=== PATIENT | male | born 1945 | race Caucasian/White ===

== ENCOUNTER → 2016-08-21 | Outpatient (REF) | payer OTHER, MEDICARE ==
[~2016-08-21] MED LIST: ASPI650T2 OR; Albuterol Inhaler INH; COMBVENT INH; FERROUS GLUCONATE PO; LASI20TA OR; LIPI10TA OR; LOPR50TA PO; MULTIVIT PO; PAIN325T OR; PEPC40TA OR; PERC5TAB8 OR; PERC7.5T8 OR; PRIN5TAB OR; TRAM50TA2 OR
[2016-08-21 09:31] LABS: MEAN CORPUSCULAR HEMOGLOBIN 30.5 pg (27.0-33.0); MEAN CORPUSCULAR HGB CONC 32.8 g/dl (32.0-36.5); RED CELL DISTRIBUTION WIDTH 13.7 % (11.5-14.5); WHITE BLOOD COUNT 9.4 K/mm3 (4.0-10.0)
[2016-08-21 09:41] LABS: ALBUMIN 4.2 GM/DL (3.2-5.2); ALBUMIN/GLOBULIN RATIO 1.24 (1.00-1.93); BILIRUBIN,TOTAL 0.6 MG/DL (0.2-1.0); CREATININE FOR GFR 1.41 MG/DL (0.70-1.30); GLOMERULAR FILTRATION RATE 53.1 (>49); POTASSIUM SERUM 4.3 MEQ/L (3.5-5.1); TOTAL PROTEIN 7.6 GM/DL (6.4-8.2)
== END ==
LOC: M LAB REF 08:54
PROVIDERS: ATTEND Family Medicine
DX: Z00.00 Encounter for general adult medical examination without abnormal findings (principal); Z12.5 Encounter for screening for malignant neoplasm of prostate; E78.5 Hyperlipidemia, unspecified

== ENCOUNTER → 2017-04-06 | Outpatient (REF) | payer OTHER, MEDICARE ==
[~2017-04-06] MED LIST changes: +AMBI5TAB PO; +COQ-100C2 PO; +FURO40TA2 PO; +LIPI10TA PO; +MULT1TAB10 PO; +SPIR25TA2 PO; +VITA100067 PO
[2017-04-06 09:40] LABS: MEAN CORPUSCULAR HEMOGLOBIN 30.7 pg (27.0-33.0); MEAN CORPUSCULAR HGB CONC 33.8 g/dl (32.0-36.5); MEAN CORPUSCULAR VOLUME 91.1 fl (80.0-96.0); RED CELL DISTRIBUTION WIDTH 14.3 % (11.5-14.5); WHITE BLOOD COUNT 7.9 K/mm3 (4.0-10.0)
[2017-04-06 10:05] LABS: ALBUMIN 4.2 GM/DL (3.2-5.2); ALBUMIN/GLOBULIN RATIO 1.2 (1.00-1.93); BILIRUBIN,TOTAL 0.7 MG/DL (0.2-1.0); CALCIUM LEVEL 9.8 MG/DL (8.8-10.2); CREATININE FOR GFR 1.34 MG/DL (0.70-1.30); FREE T4 1.08 NG/DL (0.76-1.46); GLOMERULAR FILTRATION RATE 56.1 (>42); POTASSIUM SERUM 4.3 MEQ/L (3.5-5.1); TOTAL PROTEIN 7.7 GM/DL (6.4-8.2)
== END ==
LOC: M LAB REF 08:35
PROVIDERS: ATTEND Physician Assistant Medical
DX: D64.9 Anemia, unspecified (principal); R63.4 Abnormal weight loss; R19.4 Change in bowel habit

== ENCOUNTER → 2017-04-08 | Outpatient (CLI) | payer MEDICARE, OTHER ==
[~2017-04-08] MED LIST changes: +GASTROGRAFIN SOLUTION 30ML (Q9963) As Ordered ONE; +ISOVUE-370 76% 100ML VIAL (Q9967) As Ordered ONE
--- NOTE | 2017-04-08 14:35 | REP ---
Clinical: Weight loss with change in bowel habits and anemia. Technique: Axial contrast enhanced images from the lung bases to the pubic symphysis using oral and 100 ml Isovue 370 intravenous contrast material with precontrast images of the abdomen as well as coronal and sagittal re-formations. Findings: Lung bases demonstrate a 3 mm noncalcified nodule in the anterior margin of the left lower lobe adjacent to the fissure (image 18) which has been relatively stable compared to 2014. A possible small 9 mm soft tissue nodule at the left hilum is suggested and while this may represent small lymph node, and represents a new finding compared to chest CT dated 2014. Cardiomegaly is noted without pericardial effusion. Liver, spleen, pancreas, gallbladder, bilateral adrenal glands are normal. Kidneys demonstrate few bilateral cysts measuring up to 4 cm in the inferior pole of the right kidney and 5.7 cm off the inferior pole of the left kidney. The enteric system is without obstruction or acute inflammatory process. A normal terminal ileum and appendix are identified in the right lower quadrant. Sigmoid diverticula noted without acute diverticulitis. The bladder is unremarkable. The prostate gland is minimally prominent measuring 5.2 cm maximal transverse diameter. Small fat containing inguinal hernia noted. No ascites. No obvious adenopathy. Atherosclerotic changes to the vasculature noted without aneurysm. Musculoskeletal structures demonstrate degenerative changes without focal osseous abnormality. Impression: 1. 9 mm noncalcified density in the left hilum not identified on chest CT dated 2013 warrants 3-month follow-up evaluation. 2. Simple appearing bilateral cysts measuring up to 5 cm diameter. 3. Sigmoid diverticula without acute diverticulitis. 4. No further acute abdominopelvic pathology appreciated. Signed by Dale Estrada MD 04/08/2017 02:27 P
== END ==
LOC: M RAD 12:30
PROVIDERS: ATTEND Physician Assistant Medical
DX: R19.4 Change in bowel habit (principal); R63.4 Abnormal weight loss; D64.9 Anemia, unspecified
CPT/HCPCS: 74178; Q9963; Q9967

== ENCOUNTER 2017-04-14 07:14 | Outpatient (CLI) | payer MEDICARE, OTHER ==
[~2017-04-14] VITALS: Ht 172.7 cm; Wt 85.0 kg
[~2017-04-14 07:14] MED LIST changes: -GASTROGRAFIN SOLUTION 30ML (Q9963) As Ordered ONE; -ISOVUE-370 76% 100ML VIAL (Q9967) As Ordered ONE
[2017-04-14] MEDS ORDERED: NS 1,000 ML IV ONE (07:15)
[2017-04-14] MEDS ORDERED: PROPOFOL 200 MG/20 ML VIAL As Ordered ONE ×2 (08:21→08:22)
[2017-04-14] MEDS ORDERED: LIDOCAINE 2% INJ 100 MG/5 ML SDV (FOR ANES.) As Ordered ONE (08:22)
--- NOTE | 2017-04-14 08:40 | ROOR ---
Patient Name: Isaac Ibanez Procedure Date: 04/14/2017 8:20 AM Date of : 1945 Age: 72 Room: [facility] Gender: Male Note Status: Finalized Procedure: Upper GI endoscopy Indications: Weight loss Providers: Rickie CAMPOS MD Referring MD: HAILEY RAMIREZ MD Requesting Provider: Medicines: Monitored Anesthesia Care Complications: No immediate complications. Procedure: Pre-Anesthesia Assessment: - The heart rate, respiratory rate, oxygen saturations, blood pressure, adequacy of pulmonary ventilation, and response to care were monitored throughout the procedure. The Endoscope was introduced through the mouth, and advanced to the second part of duodenum. The upper GI endoscopy was accomplished without difficulty. The patient tolerated the procedure well. Findings: Mildly severe esophagitis was found at the gastroesophageal junction. Biopsies were taken with a cold forceps for histology. Minimal inflammation was found in the gastric antrum. Biopsies were taken with a cold forceps for Helicobacter pylori testing. Localized moderate inflammation was found in the first portion of the duodenum. Biopsies were taken with a cold forceps for histology. Impression: - Mild reflux esophagitis. Biopsied. - Mild Gastritis. Biopsied. - Moderate Duodenitis. Biopsied. Recommendation: - Use Prilosec (omeprazole) 40 mg PO daily for 3 months. - Telephone endoscopist for pathology results in 2 weeks. Rickie Campos MD Rickie CAMPOS MD 04/14/2017 8:39:53 AM This report has been signed electronically. Number of Addenda: 0 Note Initiated On: 04/14/2017 8:20 AM Estimated Blood Loss: Estimated blood loss: none.
--- NOTE | 2017-04-14 08:57 | ROOR ---
Patient Name: Isaac Ibanez Procedure Date: 04/14/2017 8:23 AM Date of : 1945 Age: 72 Room: [facility] Gender: Male Note Status: Finalized Procedure: Colonoscopy Indications: Weight loss Providers: Rickie CAMPOS MD Referring MD: HAILEY RAMIREZ MD Requesting Provider: Medicines: Monitored Anesthesia Care Complications: No immediate complications. Procedure: Pre-Anesthesia Assessment: - The heart rate, respiratory rate, oxygen saturations, blood pressure, adequacy of pulmonary ventilation, and response to care were monitored throughout the procedure. The Colonoscope was introduced through the anus and advanced to 5 cm into the ileum. The colonoscopy was performed without difficulty. The patient tolerated the procedure well. The quality of the bowel preparation was good. Findings: The perianal and digital rectal examinations were normal. The terminal ileum appeared normal. Three sessile polyps were found in the cecum and ileocecal valve. The polyps were 2 to 5 mm in size. These polyps were removed with a cold snare. Resection and retrieval were complete. Multiple small-mouthed diverticula were found in the sigmoid colon and ascending colon. Internal hemorrhoids were found during retroflexion. The hemorrhoids were medium-sized. The exam was otherwise without abnormality on direct and retroflexion views. (Exam: Complete, Prep: Good or Excellent.) Impression: - The examined portion of the ileum was normal. - Three 2 to 5 mm polyps in the cecum and at the ileocecal valve, removed with a cold snare. Resected and retrieved. - Mild diverticulosis in the sigmoid colon and in the ascending colon. - Moderate Internal hemorrhoids. - The examination was otherwise normal on direct and retroflexion views. - (Exam: Complete, Prep: Good or Excellent.) Recommendation: - Telephone endoscopist for pathology results in 2 weeks. - If the pathology report reveals adenomatous tissue, then repeat the colonoscopy for surveillance in 3 years. Rickie Campos MD Rickie CAMPOS MD 04/14/2017 8:56:38 AM This report has been signed electronically. Number of Addenda: 0 Note Initiated On: 04/14/2017 8:23 AM Estimated Blood Loss: Estimated blood loss: none.
[2017-04-14 09:15] VITALS: BP 101/67
== END 2017-04-14 09:25 | disposition home or self-care (01) ==
LOC: M OPP 07:14
PROVIDERS: ATTEND Internal Medicine Gastroenterology
DX: R63.4 Abnormal weight loss (principal); D12.0 Benign neoplasm of cecum; K57.30 Diverticulosis of large intestine without perforation or abscess without bleeding; K64.8 Other hemorrhoids; K21.0 Gastro-esophageal reflux disease with esophagitis; K29.70 Gastritis, unspecified, without bleeding; K29.80 Duodenitis without bleeding; R07.89 Other chest pain; I25.10 Atherosclerotic heart disease of native coronary artery without angina pectoris; Z95.1 Presence of aortocoronary bypass graft; I25.2 Old myocardial infarction; I11.0 Hypertensive heart disease with heart failure; E78.5 Hyperlipidemia, unspecified; I50.9 Heart failure, unspecified; R12 Heartburn; M19.90 Unspecified osteoarthritis, unspecified site; M54.9 Dorsalgia, unspecified; F41.9 Anxiety disorder, unspecified; F32.9 Major depressive disorder, single episode, unspecified; N28.1 Cyst of kidney, acquired; Z87.891 Personal history of nicotine dependence; Z88.0 Allergy status to penicillin; Z88.2 Allergy status to sulfonamides; Z91.018 Allergy to other foods; Z79.899 Other long term (current) drug therapy

== ENCOUNTER → 2017-05-25 | Outpatient (REF) | payer MEDICARE, OTHER | LOC: M SFHCLERA 16:11 | PROVIDERS: ATTEND Family Medicine | DX: N18.3 Chronic kidney disease, stage 3 (moderate) (principal); Z53.8 Procedure and treatment not carried out for other reasons ==

== ENCOUNTER → 2017-06-10 | Outpatient (REF) | payer MEDICARE, OTHER ==
[2017-06-10 09:46] LABS: BASO % 0.5 % (0.0-1.0); EOS # 0.4 10^3/uL (0.0-0.50); EOS % 4.9 % (0.0-3.0); IMMATURE GRANULOCYTE % 0.4 % (0-0); LYMPH # 1.1 10^3/uL (1.5-4.5); LYMPH % 13.6 % (24.0-44.0); MEAN CORPUSCULAR HEMOGLOBIN 30.8 pg (27.0-33.0); MEAN CORPUSCULAR HGB CONC 32.8 g/dl (32.0-36.5); MEAN CORPUSCULAR VOLUME 94.1 fl (80.0-96.0); MONO # 0.9 10^3/uL (0.0-0.8); MONO % 10.7 % (0.0-5.0); NEUTROPHILS # 5.7 10^3/uL (1.8-7.7); NEUTROPHILS % 69.9 % (36.0-66.0); PLATELET COUNT, AUTOMATED 322 10^3/uL (150-450); RED CELL DISTRIBUTION WIDTH 13.2 % (11.5-14.5); WHITE BLOOD COUNT 8.2 10^3/uL (4.0-10.0)
[2017-06-10 09:52] LABS: ALBUMIN 3.9 GM/DL (3.2-5.2); ALBUMIN/GLOBULIN RATIO 1.22 (1.00-1.93); BILIRUBIN,TOTAL 0.4 MG/DL (0.2-1.0); CALCIUM LEVEL 9.6 MG/DL (8.8-10.2); CREATININE FOR GFR 1.36 MG/DL (0.70-1.30); GLOMERULAR FILTRATION RATE 55.2 (>42); POTASSIUM SERUM 4.6 MEQ/L (3.5-5.1); TOTAL PROTEIN 7.1 GM/DL (6.4-8.2)
== END ==
LOC: M SFHCLERA 09:17
PROVIDERS: ATTEND Family Medicine
DX: N18.3 Chronic kidney disease, stage 3 (moderate) (principal)

== ENCOUNTER → 2017-06-17 | Outpatient (REF) | payer MEDICARE, OTHER ==
[2017-06-17 17:25] LABS: IONIZED CALCIUM 4.9 MG/DL (4.5-5.3)
[2017-06-17 18:42] LABS: CALCIUM LEVEL 9.8 MG/DL (8.8-10.2); CREATININE FOR GFR 1.37 MG/DL (0.70-1.30); GLOMERULAR FILTRATION RATE 54.7 (>42); MAGNESIUM LEVEL 2.2 MG/DL (1.8-2.4); PHOSPHORUS LEVEL 3.2 MG/DL (2.5-4.9); POTASSIUM SERUM 4.8 MEQ/L (3.5-5.1)
== END ==
LOC: M SFHCLERA 14:07
PROVIDERS: ATTEND Family Medicine
DX: N28.9 Disorder of kidney and ureter, unspecified (principal)

== ENCOUNTER → 2017-06-26 | Outpatient (CLI) | payer MEDICARE, OTHER ==
--- NOTE | 2017-06-26 13:02 | REP ---
CT study of the chest without IV contrast: History: Pulmonary nodule. Comparison chest CT study June 09, 2014. Comparison is made with abdominal CT images from April 08, 2017 showing a perivascular infrahilar nodule in the left lower lobe which was not felt to be visible in 2013. There is a CT pulmonary angiogram which is compared from June 02, 2013. CT findings: The patient is status post prior median sternotomy. There is no evidence of pleural or pericardial effusion. There are scattered mediastinal lymph nodes which are felt to be unchanged from the May 2014 prior study. Vascular calcification is noted. No adrenal lesion is seen on either side. No extrathoracic mass or adenopathy is observed. No bony destructive lesion is seen. No infiltrate is seen. There is a stable 9.8 mm nodule in the left upper lobe visible on page #39 of 112 in series 201 of today's study which is unchanged from 2013. There are two tiny adjacent stable nodules just medial to this on page #40. There is a stable tiny noncalcified 2-3 mm nodule in the left lower lobe on page 77 of 112 in this same series. These are all unchanged from the 2013 and 2012 prior studies. However, the recently identified left perivascular lower lobe nodule seen on the images from the abdominal CT dated April 08, 2017 is again seen. This measures 13-15 mm in size on today's images and may be slightly larger than on the April 08, 2017 study. It is felt to be new from the 2013 and 2012 exam. It would be much easier to evaluate and measure if iodinated contrast had been administered as it is immediately adjacent to the pulmonary arterial branch. Its margins are felt to be slightly irregular. No other new pulmonary nodule is appreciated. Impression: 13-15 mm nodule adjacent to left lower lobe pulmonary artery branches visible on today's study page 59 through 62 of 112 of today's study. This may be a little larger than on the recent study of April 08, 2017 and is new compared with 2013 and 2012 prior studies. Consider PET CT scanning for further evaluation. It is not considered amendable to percutaneous needle biopsy. Signed by Scooby Rey MD 06/26/2017 02:45 P
== END ==
LOC: M RAD 11:14
PROVIDERS: ATTEND Family Medicine
DX: R91.1 Solitary pulmonary nodule (principal)

== ENCOUNTER 2017-07-17 13:55 | Outpatient (RCR) | payer SELFPAY | END 2017-07-26 | LOC: M CR 13:55 | DX: Z95.1 Presence of aortocoronary bypass graft (principal); I50.9 Heart failure, unspecified ==

== ENCOUNTER → 2017-07-17 | Outpatient (CLI) | payer MEDICARE, OTHER ==
[~2017-07-17] MED LIST changes: -AMBI5TAB PO; -ASPI650T2 OR; -Albuterol Inhaler INH; -COMBVENT INH; -COQ-100C2 PO; -FERROUS GLUCONATE PO; -FURO40TA2 PO; +ISOVUE-370 76% 100ML VIAL (Q9967) As Ordered; -LASI20TA OR; -LIPI10TA OR; -LIPI10TA PO; -LOPR50TA PO; -MULT1TAB10 PO; -MULTIVIT PO; -PAIN325T OR; -PEPC40TA OR; -PERC5TAB8 OR; -PERC7.5T8 OR; -PRIN5TAB OR; -SPIR25TA2 PO; -TRAM50TA2 OR; -VITA100067 PO
== END ==
LOC: M RAD 14:30
DX: R91.8 Other nonspecific abnormal finding of lung field (principal)
CPT/HCPCS: Q9967

== ENCOUNTER → 2017-07-22 | Outpatient (CLI) | payer MEDICARE, OTHER | LOC: M PLARAD 09:37 | DX: R91.1 Solitary pulmonary nodule (principal) | CPT/HCPCS: 78815 ==

== ENCOUNTER 2017-08-13 08:23 | Day surgery (SDC) | payer MEDICARE, OTHER ==
[2017-08-13] MEDS: NS 1,000 ML IV (08:30)
[2017-08-13] MEDS ORDERED: LIDOCAINE 2% INJ 100 MG/5 ML SYRINGE As Ordered (09:59)
[2017-08-13] MEDS ORDERED: PROPOFOL 500 MG/50 ML VIAL As Ordered (09:59)
[2017-08-13] MEDS ORDERED: SIMETHICONE 40MG/0.6ML DROPS 30ML As Ordered (14:55)
== END 2017-08-13 10:52 | disposition home or self-care (01) ==
LOC: M OPP 08:23
DX: R93.3 Abnormal findings on diagnostic imaging of other parts of digestive tract (principal); K64.8 Other hemorrhoids; K57.30 Diverticulosis of large intestine without perforation or abscess without bleeding; I11.0 Hypertensive heart disease with heart failure; E78.5 Hyperlipidemia, unspecified; K21.9 Gastro-esophageal reflux disease without esophagitis; F32.9 Major depressive disorder, single episode, unspecified; F41.9 Anxiety disorder, unspecified; K22.70 Barrett's esophagus without dysplasia; R07.9 Chest pain, unspecified; I50.9 Heart failure, unspecified; I05.8 Other rheumatic mitral valve diseases; R91.8 Other nonspecific abnormal finding of lung field; M19.90 Unspecified osteoarthritis, unspecified site; N18.9 Chronic kidney disease, unspecified; N28.1 Cyst of kidney, acquired; Z79.899 Other long term (current) drug therapy; Z88.0 Allergy status to penicillin; Z88.2 Allergy status to sulfonamides; Z95.1 Presence of aortocoronary bypass graft; Z87.891 Personal history of nicotine dependence; Z98.890 Other specified postprocedural states
CPT/HCPCS: 45378

== ENCOUNTER 2017-09-03 09:40 | Day surgery (SDC) | payer MEDICARE, OTHER ==
[2017-09-03] MEDS: LR 1,000 ML IV (10:13)
[2017-09-03] MEDS: THROMBIN SOLN 20,000 UNITS KIT As Ordered (10:16)
[2017-09-03] MEDS: LIDOCAINE VISCOUS 2% SOLN 15ML UDC As Ordered (10:17)
[2017-09-03] MEDS ORDERED: dexameTHASONE 4 MG/ML 1ML VIAL (J1100) As Ordered (11:41)
[2017-09-03] MEDS ORDERED: LIDOCAINE 2% INJ 100 MG/5 ML SDV (FOR ANES.) As Ordered (11:41)
[2017-09-03] MEDS ORDERED: fentaNYL 250 MCG/5 ML INJECTION (J3010) As Ordered (11:41)
[2017-09-03] MEDS ORDERED: PROPOFOL 200 MG/20 ML VIAL As Ordered (11:41)
[2017-09-03] MEDS ORDERED: ROCURONIUM BROMIDE 50 MG/5 ML VIAL As Ordered (11:41)
[2017-09-03] MEDS ORDERED: ePHEDrine INJ 50 MG/ML VIAL As Ordered (11:41)
[2017-09-03] MEDS ORDERED: PHENYLephrine HCL 500 MCG/5 ML (100MCG/ML) SYRINGE (J2370) As Ordered (11:41)
[2017-09-03] MEDS ORDERED: MIDAZOLAM INJ 2 MG/2 ML VIAL (J2250) As Ordered (11:41)
[2017-09-03] MEDS ORDERED: NEOSTIGMINE 10 MG/10 ML VIAL (J2710) As Ordered (11:46)
[2017-09-03] MEDS ORDERED: GLYCOPYRROLATE INJ 0.2 MG/ML 2 ML VIAL As Ordered ×2 (11:46)
[2017-09-03] MEDS: CETACAINE SPRAY 5GM As Ordered (12:00)
[2017-09-03] MEDS: LIDOCAINE 4% TOPICAL SOLN 50 ML BTL As Ordered (12:01)
[2017-09-03] MEDS: EPINEPHrine 1MG/10ML SYRINGE 1.5IN As Ordered (12:58)
[2017-09-03] MEDS: LIDOCAINE 1% SDV INJ 30 ML VIAL As Ordered (12:58)
[2017-09-03] MEDS: THROMBIN SOLN 5,000 UNITS VIAL As Ordered (12:59)
[2017-09-03] MEDS ORDERED: LR 1,000 ML IV (13:30)
[2017-09-03] MEDS ORDERED: fentaNYL 100 MCG/2 ML INJECTION (J3010) IV (13:30)
[2017-09-03] MEDS ORDERED: ONDANSETRON 4MG/2ML VIAL (J2405) IV (13:30)
[2017-09-03] MEDS ORDERED: NORCO, ANEXSIA 5/325MG TABLET (HYDROcodone/ACETAMINOPHEN) PO (13:30)
== END 2017-09-03 14:25 | disposition home or self-care (01) ==
LOC: M SDC 09:40
DX: R91.8 Other nonspecific abnormal finding of lung field (principal); R91.1 Solitary pulmonary nodule; I25.10 Atherosclerotic heart disease of native coronary artery without angina pectoris; K22.70 Barrett's esophagus without dysplasia; I34.8 Other nonrheumatic mitral valve disorders; R07.9 Chest pain, unspecified; I25.2 Old myocardial infarction; I13.10 Hypertensive heart and chronic kidney disease without heart failure, with stage 1 through stage 4 chronic kidney disease, or unspecified chronic kidney disease; E78.5 Hyperlipidemia, unspecified; D64.9 Anemia, unspecified; M12.9 Arthropathy, unspecified; M54.2 Cervicalgia; F32.9 Major depressive disorder, single episode, unspecified; N18.3 Chronic kidney disease, stage 3 (moderate); Z88.0 Allergy status to penicillin; Z88.2 Allergy status to sulfonamides; Z88.8 Allergy status to other drugs, medicaments and biological substances; Z91.018 Allergy to other foods; Z79.899 Other long term (current) drug therapy; Z79.82 Long term (current) use of aspirin; Z87.891 Personal history of nicotine dependence; Z95.5 Presence of coronary angioplasty implant and graft
CPT/HCPCS: 31623

== ENCOUNTER → 2017-09-09 | Outpatient (REF) | payer MEDICARE, OTHER ==
[2017-09-09 11:52] LABS: CREATININE FOR GFR 1.38 MG/DL (0.70-1.30); GLOMERULAR FILTRATION RATE 54.2 (>42)
[2017-09-09 11:52] LABS: BLOOD UREA NITROGEN 22 MG/DL (7-18)
== END ==
LOC: M LAB REF 11:18
DX: R91.8 Other nonspecific abnormal finding of lung field (principal)
CPT/HCPCS: 82565

== ENCOUNTER → 2017-09-18 | Outpatient (CLI) | payer MEDICARE, OTHER | LOC: M RAD 10:18 | DX: R91.8 Other nonspecific abnormal finding of lung field (principal) | CPT/HCPCS: Q9967 ==

== ENCOUNTER → 2017-11-09 | Outpatient (CLI) | payer MEDICARE, OTHER ==
[2017-11-09 18:12] LABS: ANION GAP 7 MEQ/L (8-16); BLOOD UREA NITROGEN 32 MG/DL (7-18); CALCIUM LEVEL 9.6 MG/DL (8.8-10.2); CARBON DIOXIDE LEVEL 28 MEQ/L (21-32); CHLORIDE LEVEL 107 MEQ/L (98-107); CREATININE FOR GFR 1.78 MG/DL (0.70-1.30); GLOMERULAR FILTRATION RATE 40.4 (>42); GLUCOSE, FASTING 101 MG/DL (70-100); POTASSIUM SERUM 4.3 MEQ/L (3.5-5.1); SODIUM LEVEL 142 MEQ/L (136-145)
== END ==
LOC: M SMT 13:18
DX: I50.9 Heart failure, unspecified (principal); I42.9 Cardiomyopathy, unspecified
CPT/HCPCS: 80048

== ENCOUNTER 2017-12-11 06:42 | Emergency (ER) | payer MEDICARE, OTHER ==
[2017-12-11 07:13] LABS: BASO % 0.5 % (0.0-1.0); EOS # 0.4 10^3/uL (0.0-0.50); EOS % 4.3 % (0.0-3.0); HEMOGLOBIN 12.9 g/dl (13.5-17.5); IMMATURE GRANULOCYTE % 0.2 % (0-3.0); LYMPH # 1.1 10^3/uL (1.5-4.5); LYMPH % 13.7 % (24.0-44.0); MEAN CORPUSCULAR HEMOGLOBIN 28.8 pg (27.0-33.0); MEAN CORPUSCULAR HGB CONC 32.3 g/dl (32.0-36.5); MEAN CORPUSCULAR VOLUME 89.3 fl (80.0-96.0); MONO % 11.6 % (0.0-5.0); NEUTROPHILS # 5.7 10^3/uL (1.8-7.7); NEUTROPHILS % 69.7 % (36.0-66.0); PLATELET COUNT, AUTOMATED 256 10^3/uL (150-450); RED BLOOD COUNT 4.48 10^6/uL (4.30-6.10); RED CELL DISTRIBUTION WIDTH 14.4 % (11.5-14.5); WHITE BLOOD COUNT 8.2 10^3/uL (4.0-10.0)
[2017-12-11 07:28] LABS: INR 1.07; PARTIAL THROMBOPLASTIN TIME 32.7 SECONDS (26.8-37.9)
[2017-12-11 07:46] LABS: ALBUMIN 3.7 GM/DL (3.2-5.2); ALKALINE PHOSPHATASE 110 U/L (45-117); ALT/SGPT 40 U/L (12-78); ANION GAP 7 MEQ/L (8-16); AST/SGOT 26 U/L (7-37); BILIRUBIN,DIRECT 0.1 MG/DL (0.0-0.2); BILIRUBIN,TOTAL 0.5 MG/DL (0.2-1.0); BLOOD UREA NITROGEN 36 MG/DL (7-18); CALCIUM LEVEL 8.9 MG/DL (8.8-10.2); CARBON DIOXIDE LEVEL 25 MEQ/L (21-32); CHLORIDE LEVEL 109 MEQ/L (98-107); CK-MB VALUE MASS 2.5 NG/ML (<3.6); CPK CREATINE PHOSPHOKINASE 74 U/L (39-308); CREATININE FOR GFR 1.56 MG/DL (0.70-1.30); GLOMERULAR FILTRATION RATE 47.1 (>42); GLUCOSE, FASTING 121 MG/DL (70-100); LIPASE 142 U/L (73-393); MB/CK RELATIVE INDEX 3.37 (< OR =4); POTASSIUM SERUM 3.8 MEQ/L (3.5-5.1); SODIUM LEVEL 141 MEQ/L (136-145); TOTAL PROTEIN 7.4 GM/DL (6.4-8.2); TROPONIN I 0.04 NG/ML (< 0.10)
[2017-12-11] MEDS ORDERED: NITROGLYCERIN 0.4 MG SUBL TABLET SL (08:00)
[2017-12-11 13:30] LABS: CK-MB VALUE MASS 2.6 NG/ML (<3.6); CPK CREATINE PHOSPHOKINASE 69 U/L (39-308); MB/CK RELATIVE INDEX 3.76 (< OR =4); TROPONIN I 0.04 NG/ML (< 0.10)
== END 2017-12-11 13:50 | disposition home or self-care (01) ==
LOC: M ED 06:42
DX: R07.9 Chest pain, unspecified (principal); I44.0 Atrioventricular block, first degree; I45.9 Conduction disorder, unspecified; I51.7 Cardiomegaly; I51.9 Heart disease, unspecified; Z95.1 Presence of aortocoronary bypass graft; N18.4 Chronic kidney disease, stage 4 (severe); Z87.891 Personal history of nicotine dependence; Z79.82 Long term (current) use of aspirin; Z79.899 Other long term (current) drug therapy; Z88.0 Allergy status to penicillin; Z88.2 Allergy status to sulfonamides; Z91.018 Allergy to other foods
CPT/HCPCS: 71046

== ENCOUNTER → 2018-05-20 | Outpatient (REF) | payer MEDICARE, OTHER | LOC: M SFHCLERA 14:22 | DX: I25.810 Atherosclerosis of coronary artery bypass graft(s) without angina pectoris (principal) ==

== ENCOUNTER → 2018-06-03 | Outpatient (REF) | payer MEDICARE, OTHER ==
[2018-06-03 18:04] LABS: BASO % 0.5 % (0.0-1.0); EOS # 0.4 10^3/uL (0.0-0.50); EOS % 4.4 % (0.0-3.0); HEMATOCRIT 39.7 % (42.0-52.0); HEMOGLOBIN 12.9 g/dl (13.5-17.5); IMMATURE GRANULOCYTE % 0.1 % (0-3.0); LYMPH # 1.4 10^3/uL (1.5-4.5); LYMPH % 17.4 % (24.0-44.0); MEAN CORPUSCULAR HEMOGLOBIN 30.1 pg (27.0-33.0); MEAN CORPUSCULAR HGB CONC 32.5 g/dl (32.0-36.5); MEAN CORPUSCULAR VOLUME 92.5 fl (80.0-96.0); MONO # 0.9 10^3/uL (0.0-0.8); MONO % 10.8 % (0.0-5.0); NEUTROPHILS # 5.3 10^3/uL (1.8-7.7); NEUTROPHILS % 66.8 % (36.0-66.0); PLATELET COUNT, AUTOMATED 325 10^3/uL (150-450); RED BLOOD COUNT 4.29 10^6/uL (4.30-6.10)
[2018-06-03 18:13] LABS: ANION GAP 7 MEQ/L (8-16); BLOOD UREA NITROGEN 37 MG/DL (7-18); CARBON DIOXIDE LEVEL 29 MEQ/L (21-32); CHLORIDE LEVEL 100 MEQ/L (98-107); CHOLESTEROL LEVEL 164 MG/DL (<200); CHOLESTEROL RISK RATIO 3.416 (<5); CREATININE FOR GFR 1.53 MG/DL (0.70-1.30); GLUCOSE, FASTING 110 MG/DL (70-100); HDL CHOLESTEROL 48 MG/DL (>40); LDL CHOLESTEROL 85 MG/DL (<100); NON-HDL-C 116 MG/DL; POTASSIUM SERUM 4.7 MEQ/L (3.5-5.1); SODIUM LEVEL 136 MEQ/L (136-145); TRIGLYCERIDES LEVEL 153 MG/DL (<150)
[2018-06-03 18:52] LABS: MALB URINE SIEMENS 18.3 MG/L
[2018-06-03 18:54] LABS: MAU/CREAT RATIO 17.1 MCG/MG (0.0-30.0)
== END ==
LOC: M SFHCLERA 08:12
DX: I25.810 Atherosclerosis of coronary artery bypass graft(s) without angina pectoris (principal)
CPT/HCPCS: 80061

== ENCOUNTER → 2018-08-12 | Outpatient (CLI) | payer MEDICARE, OTHER ==
[~2018-08-12] MED LIST changes: +AMBI5TAB PO; +ASPI325T25 PO; +ASPI650T2 OR; +Albuterol Inhaler INH; +COMBVENT INH; +COQ-100C2 PO; +FERROUS GLUCONATE PO; +FURO40TA2 PO; -ISOVUE-370 76% 100ML VIAL (Q9967) As Ordered; +LASI20TA OR; +LIPI10TA OR; +LIPI10TA PO; +LOPR50TA PO; +MULT1TAB10 PO; +MULTIVIT PO; +OMEP20CA3 PO; +PAIN325T OR; +PEPC40TA OR; +PERC5TAB8 OR; +PERC7.5T8 OR; +PRIN5TAB OR; +SPIR-10 PO; +TRAM50TA2 OR; +TRAZ-163 PO; +VITA100067 PO
[2018-08-12 16:18] LABS: BASO % 0.3 % (0.0-1.0); EOS # 0.2 10^3/uL (0.0-0.50); EOS % 2.2 % (0.0-3.0); HEMATOCRIT 41.6 % (42.0-52.0); HEMOGLOBIN 13.8 g/dl (13.5-17.5); LYMPH # 1.2 10^3/uL (1.5-4.5); LYMPH % 16.1 % (24.0-44.0); MEAN CORPUSCULAR HEMOGLOBIN 30.5 pg (27.0-33.0); MEAN CORPUSCULAR HGB CONC 33.2 g/dl (32.0-36.5); MEAN CORPUSCULAR VOLUME 91.8 fl (80.0-96.0); MONO # 0.8 10^3/uL (0.0-0.8); NEUTROPHILS # 5.1 10^3/uL (1.8-7.7); NEUTROPHILS % 70.1 % (36.0-66.0); PLATELET COUNT, AUTOMATED 281 10^3/uL (150-450); RED BLOOD COUNT 4.53 10^6/uL (4.30-6.10); WHITE BLOOD COUNT 7.3 10^3/uL (4.0-10.0)
[2018-08-12 16:49] LABS: CALCIUM LEVEL 10.1 MG/DL (8.8-10.2); CREATININE FOR GFR 1.68 MG/DL (0.70-1.30); GLOMERULAR FILTRATION RATE 43.1 (>42); POTASSIUM SERUM 5.3 MEQ/L (3.5-5.1)
== END ==
LOC: M LRY 14:26
PROVIDERS: ATTEND Internal Medicine Cardiovascular Disease
DX: I50.9 Heart failure, unspecified (principal)

== ENCOUNTER → 2019-02-12 | Outpatient (CLI) | payer MEDICARE, OTHER ==
[~2019-02-12] MED LIST changes: +ASPI-255 PO; -ASPI325T25 PO; -OMEP20CA3 PO; +OMEP20CA4 PO
--- NOTE | 2019-02-13 08:16 | REP ---
LEFT ELBOW: Four views left elbow performed. No acute fracture or dislocation is seen. There is minor diffuse joint space narrowing and spurring. There is a small joint effusion. IMPRESSION: Mild degenerative changes. Small joint effusion. No definite fracture. Electronically Signed by Terrell Fuchs MD 02/13/2019 10:35 P
--- NOTE | 2019-02-13 08:18 | REP ---
LEFT FOREARM TWO VIEWS: Two views of the left forearm are performed. Mild diffuse degenerative changes are seen at the left elbow joint with mild diffuse joint space narrowing and spurring. There is mild radiocarpal joint space narrowing at the wrist. There are arthritic changes incidentally noted at the base of the thumb. IMPRESSION: Mild degenerative changes as discussed above. No acute fracture or dislocation. Electronically Signed by Terrell Fuchs MD 02/13/2019 10:36 P
== END ==
LOC: M WUC 12:32
PROVIDERS: ATTEND Physician Assistant
DX: M25.422 Effusion, left elbow (principal); M19.022 Primary osteoarthritis, left elbow

== ENCOUNTER → 2020-11-21 | Outpatient (REF) | payer MEDICARE, OTHER ==
[~2020-11-21] MED LIST changes: +OMEP1CAP73 PO; -OMEP20CA4 PO; -TRAZ-163 PO; +TRAZ-257 PO
[2020-11-21 14:36] LABS: BILIRUBIN,TOTAL 0.4 MG/DL (0.2-1.0); CALCIUM LEVEL 9.9 MG/DL (8.8-10.2); CHOLESTEROL RISK RATIO 3.479 (<5); CREATININE FOR GFR 1.36 MG/DL (0.70-1.30); GLOMERULAR FILTRATION RATE 54.7 (>42); POTASSIUM SERUM 4.7 MEQ/L (3.5-5.1); TOTAL PROTEIN 7.4 GM/DL (6.4-8.2)
== END ==
LOC: M PLALAB 13:18
PROVIDERS: ATTEND Nurse Practitioner Family
DX: I50.22 Chronic systolic (congestive) heart failure (principal); Z95.5 Presence of coronary angioplasty implant and graft; I25.10 Atherosclerotic heart disease of native coronary artery without angina pectoris

== ENCOUNTER → 2020-11-21 | Outpatient (REF) | payer MEDICARE, OTHER ==
[2020-11-21 13:21] LABS: BASO # 0.1 10^3/uL (0.0-0.2); BASO % 0.8 % (0.0-1.0); EOS # 0.5 10^3/uL (0.0-0.5); HEMATOCRIT 39.8 % (42.0-52.0); HEMOGLOBIN 12.3 g/dl (13.5-17.5); LYMPH # 1.2 10^3/uL (1.5-5.0); LYMPH % 15.4 % (24.0-44.0); MEAN CORPUSCULAR HEMOGLOBIN 28.9 pg (27.0-33.0); MEAN CORPUSCULAR HGB CONC 30.9 g/dl (32.0-36.5); MEAN CORPUSCULAR VOLUME 93.6 fl (80.0-96.0); MONO # 0.9 10^3/uL (0.0-0.8); MONO % 11.5 % (2.0-8.0); NEUTROPHILS # 5.1 10^3/uL (1.5-8.5); NEUTROPHILS % 65.9 % (36.0-66.0); PLATELET COUNT, AUTOMATED 299 10^3/uL (150-450); RED BLOOD COUNT 4.25 10^6/uL (4.30-6.10); WHITE BLOOD COUNT 7.7 10^3/uL (4.0-10.0)
[2020-11-21 13:50] LABS: HEMOGLOBIN A1c 5.6 %
== END ==
LOC: M SFHCLERA 09:33
PROVIDERS: ATTEND Family Medicine
DX: D64.9 Anemia, unspecified (principal); Z13.1 Encounter for screening for diabetes mellitus; Z79.899 Other long term (current) drug therapy

== ENCOUNTER → 2020-12-18 | Outpatient (CLI) | payer MEDICARE, OTHER ==
--- NOTE | 2020-12-18 16:31 | REPVR ---
PROCEDURE INFORMATION: Exam: CT Chest Without Contrast; Diagnostic Exam date and time: 12/18/2020 3:34 PM Age: 75 years old Clinical indication: Other: Nodule; Additional info: Pulmonary nodule TECHNIQUE: Imaging protocol: Diagnostic computed tomography of the chest without contrast. 3D rendering (Not supervised by radiologist): MIP and/or 3D reconstructed images were created by the technologist. Radiation optimization: All CT scans at this facility use at least one of these dose optimization techniques: automated exposure control; mA and/or kV adjustment per patient size (includes targeted exams where dose is matched to clinical indication); or iterative reconstruction. COMPARISON: CT Chest with contrast 09/18/2017 10:41 AM FINDINGS: Tubes, catheters and devices: A pacemaker device is present, and its leads are in appropriate position. Lungs: There is redemonstration of a left upper lobe peripheral nodule measuring 9 mm on axial image 36 similar to the lesion described on image 39 of the previous study. An adjacent slightly anterior 5 mm nodule is stable. There is another left upper lobe nodule somewhat more laterally measuring 6 mm on image 40 which measured about 5 mm on previous image 44. There are new nodules in the posterior right upper lobe peripherally measuring 4 mm on image 23 and 6 mm on image 26 and 5 mm on image 30 which are not identified on the prior study. There is a new 3 mm peripheral right middle lobe nodule on image 56. Pleural spaces: Unremarkable. No pneumothorax. No pleural effusion. Heart: Sternotomy wires and mediastinal surgical clips are present, consistent with previous coronary arterial bypass grafting. Mediastinal space: There is a multilobulated mass involving the lower left hilum measuring 31 x 40 mm on axial image 56 with craniocaudal diameter of 31 mm. There is a 2nd slightly more anterior left lower lobe nodule measuring 15 x 27 by 19 mm. Aorta: Unremarkable. No aortic aneurysm. Lymph nodes: Unremarkable. No enlarged lymph nodes. Liver: Upper abdomen: The visualized portions of the liver, pancreas, adrenal glands, and spleen show no significant abnormalities. Gallbladder and bile ducts: Multiple calcified gallstones are present. There is no evidence of cholecystitis or biliary dilatation. Kidneys and ureters: There are several bilateral renal cysts with the largest at the lower pole of the right kidney measuring 3.2 cm with a similar size cyst of the anteromedial lip of the left kidney. Bones/joints: Unremarkable. No acute fracture. Soft tissues: Unremarkable. IMPRESSION: 1. There is a multilobulated mass involving the lower left hilum measuring 31 x 40 mm on axial image 56 with craniocaudal diameter of 31 mm. There is a 2nd slightly more anterior left lower lobe nodule measuring 15 x 27 by 19 mm. 2. There is redemonstration of a left upper lobe peripheral nodule measuring 9 mm on axial image 36 similar to the lesion described on image 39 of the previous study. An adjacent slightly anterior 5 mm nodule is stable. 3. There is another left upper lobe nodule somewhat more laterally measuring 6 mm on image 40 which measured about 5 mm on previous image 44. 4. There are new nodules in the posterior right upper lobe peripherally measuring 4 mm on image 23 and 6 mm on image 26 and 5 mm on image 30 which are not identified on the prior study. There is a new 3 mm peripheral right middle lobe nodule on image 56. 5. Multiple calcified gallstones are present. There is no evidence of cholecystitis or biliary dilatation. 6. There are several bilateral renal cysts with the largest at the lower pole of the right kidney measuring 3.2 cm with a similar size cyst of the anteromedial lip of the left kidney. RECOMMENDATION: As per revised Fleischner Society guidelines for follow-up and management of pulmonary nodules: Recommend initial follow-up chest CT at 3 months with followup consideration at 18 to 24 months. Consider contrast enhanced chest CT, PET scan and/or biopsy as clinically warranted. COMMENTS: Consistent with the [employer]'s Incidental Findings Committee white paper (J Am Gabbi Radiol 2018): Any incidental renal lesion less than 1 cm or classified as too small to characterize, or any incidental cystic renal lesion characterized as simple-appearing, is likely benign. No follow-up imaging is recommended for these lesions per consensus recommendations based on imaging criteria. Electronically signed by: Jin Gill On 12/18/2020 16:30:56 PM
== END ==
LOC: M RAD 15:20
PROVIDERS: ATTEND Family Medicine
DX: R91.8 Other nonspecific abnormal finding of lung field (principal); Z95.0 Presence of cardiac pacemaker; K80.20 Calculus of gallbladder without cholecystitis without obstruction; N28.1 Cyst of kidney, acquired

== ENCOUNTER → 2021-01-25 | Outpatient (CLI) | payer MEDICARE, OTHER ==
[~2021-01-25] MED LIST changes: +ASPI-527 PO; +LISI-898 PO; +METO1TAB32 PO; +VITMTA PO
== END ==
LOC: M LABSMTC 13:04
PROVIDERS: ATTEND Anesthesiology
DX: Z01.812 Encounter for preprocedural laboratory examination (principal); Z20.822 Contact with and (suspected) exposure to COVID-19

== ENCOUNTER 2021-01-29 08:12 | Day surgery (SDC) | payer MEDICARE, OTHER ==
[~2021-01-29] VITALS: Ht 175.3 cm; Wt 98.2 kg
[~2021-01-29 08:12] MED LIST changes: +ALBUTEROL SULFATE 2.5 MG/0.5 ML INH NEB SOLN INH ONE; -ASPI-527 PO; +LIDOCAINE 4% INJ 5ML AMP INH ONE; -LISI-898 PO; +LISI5TAB11 PO; +LR 1,000 ML IV ONE
[2021-01-29] MEDS ORDERED: MIDAZOLAM INJ 2MG/2ML VIAL (J2250 PER 1MG) As Ordered ONE (08:25)
[2021-01-29] MEDS ORDERED: fentaNYL 100 MCG/2 ML INJECTION As Ordered ONE (08:25)
[2021-01-29] MEDS ORDERED: ONDANSETRON 4MG/2ML VIAL As Ordered ONE (08:26)
[2021-01-29] MEDS ORDERED: PHENYLephrine 500MCG 5ML (100MCG/ML) SYRINGE As Ordered ONE (08:26)
[2021-01-29] MEDS ORDERED: ePHEDrine SULFATE 25 MG/5 ML(5MG/ML) SYRINGE As Ordered ONE (08:26)
[2021-01-29] MEDS ORDERED: SUGAMMADEX SODIUM 500 MG/5 ML VIAL (BRIDION) As Ordered ONE (08:26)
[2021-01-29] MEDS ORDERED: dexameTHASONE 4 MG/ML 1ML VIAL (J1100 PER 1MG) As Ordered ONE (08:26)
[2021-01-29] MEDS ORDERED: ACETAMINOPHEN 1000MG 100ML IV BTL (OFIRMEV) (J0131 PER 10MG) As Ordered ONE ×2 (08:26→12:21)
[2021-01-29] MEDS ORDERED: propofoL 200 MG/20 ML VIAL As Ordered ONE (08:27)
[2021-01-29] MEDS ORDERED: ROCURONIUM BROMIDE 50 MG/5 ML VIAL As Ordered ONE (08:27)
[2021-01-29] MEDS ORDERED: LIDOCAINE 2% 100MG/5ML SDV (FOR ANES.) As Ordered ONE (08:27)
[2021-01-29] MEDS ORDERED: ASPI-527 PO (08:54)
[2021-01-29] MEDS ORDERED: LIDOCAINE 1% SDV 30ML VIAL As Ordered ONE (11:02)
[2021-01-29] MEDS ORDERED: EPINEPHrine 1MG/10ML SYRINGE 1.5IN As Ordered ONE (11:02)
[2021-01-29] MEDS ORDERED: THROMBIN SOLN 20,000 UNITS KIT As Ordered ONE (11:02)
[2021-01-29] MEDS ORDERED: CETACAINE SPRAY 5GM As Ordered ONE (11:02)
[2021-01-29] MEDS ORDERED: LR 1,000 ML IV SCH (12:55)
[2021-01-29] MEDS ORDERED: oxyCODONE 5MG TAB PO PRN (12:55)
[2021-01-29] MEDS ORDERED: ONDANSETRON 4MG/2ML VIAL IV PRN (12:55)
[2021-01-29] MEDS ORDERED: fentaNYL 100 MCG/2 ML INJECTION IV PRN (12:55)
[2021-01-29 13:41] VITALS: BP 134/90
== END 2021-01-29 13:50 | disposition home or self-care (01) ==
LOC: M SDC 08:12
PROVIDERS: ATTEND Internal Medicine Pulmonary Disease
DX: C34.32 Malignant neoplasm of lower lobe, left bronchus or lung (principal); R00.2 Palpitations; I25.10 Atherosclerotic heart disease of native coronary artery without angina pectoris; I34.0 Nonrheumatic mitral (valve) insufficiency; Z95.810 Presence of automatic (implantable) cardiac defibrillator; E78.5 Hyperlipidemia, unspecified; I50.22 Chronic systolic (congestive) heart failure; I13.0 Hypertensive heart and chronic kidney disease with heart failure and stage 1 through stage 4 chronic kidney disease, or unspecified chronic kidney disease; Z95.1 Presence of aortocoronary bypass graft; K22.70 Barrett's esophagus without dysplasia; D64.9 Anemia, unspecified; F32.9 Major depressive disorder, single episode, unspecified; N18.30 Chronic kidney disease, stage 3 unspecified; Z79.899 Other long term (current) drug therapy; Z79.82 Long term (current) use of aspirin; Z88.0 Allergy status to penicillin; Z88.2 Allergy status to sulfonamides; Z88.8 Allergy status to other drugs, medicaments and biological substances; Z91.018 Allergy to other foods; Z87.891 Personal history of nicotine dependence
CPT/HCPCS: 31624; 31625; 31626; 31652; 71045; 76000; 88305; 88342; A4648; J0131; J1100; J2250; J2370; J2405; J3010; S2900

== ENCOUNTER → 2021-02-25 | Outpatient (CLI) | payer MEDICARE, OTHER ==
[~2021-02-25] MED LIST changes: -ALBUTEROL SULFATE 2.5 MG/0.5 ML INH NEB SOLN INH ONE; +ASPI-527 PO; -LIDOCAINE 4% INJ 5ML AMP INH ONE; +LISI-898 PO; -LISI5TAB11 PO; -LR 1,000 ML IV ONE
--- NOTE | 2021-02-25 19:29 | REP ---
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 COMPARISON: PET scan dated 02/19/[address] dated 12/18/2020. TECHNIQUE: The study is performed with 8.93 mCi of F 18 FDG. FINDINGS: The known multilobulated left infrahilar mass demonstrates marked hypermetabolic uptake with the standard uptake value measuring 13.09. There is no mediastinal uptake. No right hilar uptake. The known multiple stable left upper lobe nodules demonstrate no hypermetabolic uptake. The known right upper lobe nodules identified on the comparison CT are no longer identified on the CT accompanying the PET scan today and may have represented transient atelectasis. No other hypermetabolic foci are identified in the chest. There are no other hypermetabolic foci in the neck or supraclavicular areas. There are no hypermetabolic foci in the abdomen, pelvis upper thighs except for a focus in the sigmoid colon, similar in location to the focus identified on the comparison PET scan, with a maximal standard uptake value of 7.15. IMPRESSION: The known multilobulated right infrahilar mass demonstrates marked hypermetabolic uptake, with a maximal standard uptake value of 13.09. There is a hypermetabolic focus in the sigmoid colon with a standard uptake value of 7.15, similar in location to the focus identified the previous PET scan of July 22, 2017. The bilateral upper lobe lung nodules demonstrate no hypermetabolic uptake as discussed above. <Electronically signed by Terrell Freeman > 02/25/21 1925
== END ==
LOC: M PLARAD 08:17
PROVIDERS: ATTEND Internal Medicine Pulmonary Disease
DX: C34.82 Malignant neoplasm of overlapping sites of left bronchus and lung (principal)
CPT/HCPCS: 78815; A9552

== ENCOUNTER → 2021-03-04 | Outpatient (CLI) | payer MEDICARE, OTHER ==
[~2021-03-04] MED LIST changes: -LISI-898 PO; +LISI5TAB11 PO
[2021-03-04 12:59] LABS: CREATININE FOR GFR 1.79 MG/DL (0.70-1.30); GLOMERULAR FILTRATION RATE 39.7 (>42)
== END ==
LOC: M LAB 11:36
PROVIDERS: ATTEND Thoracic Surgery (Cardiothoracic Vascular Surgery)
DX: C34.32 Malignant neoplasm of lower lobe, left bronchus or lung (principal)

== ENCOUNTER → 2021-07-10 | Outpatient (CLI) | payer MEDICARE, OTHER ==
[~2021-07-10] MED LIST changes: +LISI-898 PO; -LISI5TAB11 PO
--- NOTE | 2021-07-10 12:15 | REP ---
INDICATION: SHORTNESS OF BREATH COMPARISON: 01/29/2021 TECHNIQUE: PA and lateral. FINDINGS: Stable cardiomegaly with evidence for prior sternotomy and pacemaker. [id number] is identified with tip in the right atrium. The lung trejo demonstrate stable chronic appearing changes. No obvious focal consolidation is appreciated. The previously identified left infrahilar/lower lobe mass is not visible by current x-ray. No effusion. No pneumothorax. Skeletal structures demonstrate age-related changes. IMPRESSION: Stable cardiomegaly and chronic appearing changes. No obvious acute consolidation or effusion. Previously noted left lower lobe mass is not visible by current radiographic evaluation. <Electronically signed by Dale Estrada > 07/10/21 1211
== END ==
LOC: M PLAIMG 11:45
PROVIDERS: ATTEND Nurse Practitioner Acute Care
DX: R06.02 Shortness of breath (principal); M85.80 Other specified disorders of bone density and structure, unspecified site

== ENCOUNTER → 2021-09-20 | Outpatient (CLI) | payer MEDICARE, OTHER ==
[~2021-09-20] MED LIST changes: -LISI-898 PO; +LISI5TAB11 PO
[2021-09-20 15:00] LABS: BASO % 0.1 % (0.0-1.0); EOS # 0.3 10^3/uL (0.0-0.5); EOS % 3.9 % (0.0-3.0); HEMATOCRIT 29.4 % (42.0-52.0); HEMOGLOBIN 9.2 g/dl (13.5-17.5); LYMPH # 0.8 10^3/uL (1.5-5.0); MEAN CORPUSCULAR HEMOGLOBIN 28.3 pg (27.0-33.0); MEAN CORPUSCULAR HGB CONC 31.3 g/dl (32.0-36.5); MEAN CORPUSCULAR VOLUME 90.5 fl (80.0-96.0); MONO # 0.6 10^3/uL (0.0-0.8); MONO % 7.9 % (2.0-8.0); NEUTROPHILS # 5.3 10^3/uL (1.5-8.5); NEUTROPHILS % 75.7 % (36.0-66.0); PLATELET COUNT, AUTOMATED 303 10^3/uL (150-450); RED BLOOD COUNT 3.25 10^6/uL (4.30-6.10)
[2021-09-21 16:07] LABS: Lyme Disease IgG/IgM Antibodie <0.91 ISR (0.00-0.90); Lyme Disease IgM Ab Quantitati <0.80 index (0.00-0.79)
== END ==
LOC: M LAB 14:19
PROVIDERS: ATTEND Family Medicine
DX: A69.20 Lyme disease, unspecified (principal)

== ENCOUNTER → 2021-09-27 | Outpatient (CLI) | payer MEDICARE, OTHER | LOC: M RAD 15:55 | PROVIDERS: ATTEND Family Medicine | DX: M25.561 Pain in right knee (principal); M25.562 Pain in left knee; M17.0 Bilateral primary osteoarthritis of knee ==

== ENCOUNTER → 2021-10-04 | Outpatient (CLI) | payer MEDICARE, OTHER | LOC: M RAD 12:48 | PROVIDERS: ATTEND Family Medicine | DX: R59.0 Localized enlarged lymph nodes (principal); M25.561 Pain in right knee; M71.22 Synovial cyst of popliteal space [Baker], left knee; I87.2 Venous insufficiency (chronic) (peripheral) ==

== ENCOUNTER → 2022-03-03 | Outpatient (REF) | payer MEDICARE, OTHER ==
[2022-03-03 23:21] LABS: CALCIUM LEVEL 10.1 MG/DL (8.8-10.2); CREATININE FOR GFR 2.33 MG/DL (0.70-1.30); GLOMERULAR FILTRATION RATE 29.2 (>42); POTASSIUM SERUM 4.7 MEQ/L (3.5-5.1)
== END ==
LOC: M LABDRWCV 16:42
PROVIDERS: ATTEND Nurse Practitioner
DX: C34.32 Malignant neoplasm of lower lobe, left bronchus or lung (principal)

== ENCOUNTER 2022-03-24 13:45 | Inpatient (IN) | payer MEDICARE, OTHER ==
[~2022-03-24] VITALS: Ht 172.7 cm; Wt 97.6 kg
[2022-03-24 16:08] LABS: BASO % 0.2 % (0.0-1.0); EOS # 0.6 10^3/uL (0.0-0.5); EOS % 6.4 % (0.0-3.0); HEMATOCRIT 26.3 % (42.0-52.0); HEMOGLOBIN 7.7 g/dl (13.5-17.5); LYMPH # 0.6 10^3/uL (1.5-5.0); LYMPH % 5.8 % (24.0-44.0); MEAN CORPUSCULAR HEMOGLOBIN 25.6 pg (27.0-33.0); MEAN CORPUSCULAR HGB CONC 29.3 g/dl (32.0-36.5); MEAN CORPUSCULAR VOLUME 87.4 fl (80.0-96.0); MONO # 1.1 10^3/uL (0.0-0.8); MONO % 11.6 % (2.0-8.0); NEUTROPHILS # 7.2 10^3/uL (1.5-8.5); NEUTROPHILS % 75.3 % (36.0-66.0); PLATELET COUNT, AUTOMATED 394 10^3/uL (150-450); RED BLOOD COUNT 3.01 10^6/uL (4.30-6.10); VENOUS BASE EXCESS -1.9 (-2.0-2.0); VENOUS O2 SATURATION 45.6 % (60.0-80.0); VENOUS PARTIAL PRESSURE CO2 53.5 mmHg (38.0-50.0); VENOUS PARTIAL PRESSURE O2 31.2 mmHg (30.0-50.0); VENOUS PH 7.287 UNITS (7.330-7.430); VENOUS STANDARD HCO3 22.1 MEQ/L; VENOUS TOTAL CO2 26.6 MEQ/L (24.0-28.0); WHITE BLOOD COUNT 9.6 10^3/uL (4.0-10.0)
[2022-03-24 16:53] LABS: ALBUMIN 3.2 GM/DL (3.2-5.2); BILIRUBIN,DIRECT 0.3 MG/DL (0.0-0.2); BILIRUBIN,TOTAL 0.4 MG/DL (0.2-1.0); CALCIUM LEVEL 10.3 MG/DL (8.8-10.2); CREATININE FOR GFR 5.4 MG/DL (0.70-1.30); GLOMERULAR FILTRATION RATE 11.1 (>42); POTASSIUM SERUM 4.9 MEQ/L (3.5-5.1); THYROID STIMULATING HORMONE 0.434 uIU/ML (0.358-3.740); THYROXINE (T4) 8.8 UG/DL (4.5-12.0); TOTAL PROTEIN 7.1 GM/DL (6.4-8.2)
[2022-03-24] MEDS ORDERED: SODIUM CHLORIDE 0.9% INJ 10 ML SYR IV PRN (17:50)
[2022-03-24] MEDS ORDERED: ACETAMINOPHEN 325 MG TAB PO ONE (18:20)
[2022-03-24 18:55] LABS: INR 1.15; PROTHROMBIN TIME 15.1 SECONDS (12.7-14.5)
[2022-03-24] MEDS ORDERED: TORS100T PO (19:51)
[2022-03-24] MEDS ORDERED: PRED10TA2 PO (19:51)
[2022-03-24] MEDS ORDERED: HOME MED LIST COMPLETE! XX SCH (19:55)
[2022-03-24 19:58] LABS: CK-MB VALUE MASS 1.6 NG/ML (<3.6); MB/CK RELATIVE INDEX 3.14 (< OR =4)
[2022-03-24] MEDS ORDERED: MIDODRINE 5 MG TAB PO ONE (21:25)
[2022-03-24] MEDS ORDERED: LevoFLOXacin IV 750 MG in IV 1 EA IV ONE (21:50)
[2022-03-24] MEDS: ATORVASTATIN 10 MG TAB PO SCH (22:00)
[2022-03-24] MEDS: HEPARIN SOD (PORCINE) 5000UNITS/ML 1ML VIAL/SYRINGE SC SCH (22:01)
[2022-03-24] MEDS ORDERED: ALBUTEROL 90 MCG/ACT 8GM HFA INHALER INH PRN (22:40)
[2022-03-24 22:53] VITALS: BP 125/63
[2022-03-24] MEDS ORDERED: IPRATROPIUM 0.5MG/ALBUTEROL 2.5MG INH SOL UD 3ML (DUONEB) NEB PRN (23:15)
[2022-03-24] MEDS: traZODone 100 MG TAB PO SCH (23:50)
[2022-03-24 23:55] VITALS: BP 98/60
[2022-03-25] VITALS (18 sets, daily range): BP systolic 82–115; BP diastolic 49–72; O2SAT 94–96
[2022-03-25 00:10] LABS: HEMATOCRIT 24.1 % (42.0-52.0)
[2022-03-25 00:38] LABS: CK-MB VALUE MASS 2.4 NG/ML (<3.6); MB/CK RELATIVE INDEX 3.75 (< OR =4)
[2022-03-25] MEDS: HEPARIN SOD (PORCINE) 5000UNITS/ML 1ML VIAL/SYRINGE SC SCH ×3 (06:10→21:22)
[2022-03-25 07:23] LABS: BASO % 0.2 % (0.0-1.0); EOS # 0.7 10^3/uL (0.0-0.5); EOS % 8.2 % (0.0-3.0); HEMATOCRIT 27.9 % (42.0-52.0); HEMOGLOBIN 8.3 g/dl (13.5-17.5); LYMPH # 0.5 10^3/uL (1.5-5.0); MEAN CORPUSCULAR HEMOGLOBIN 25.9 pg (27.0-33.0); MEAN CORPUSCULAR HGB CONC 29.7 g/dl (32.0-36.5); MEAN CORPUSCULAR VOLUME 87.2 fl (80.0-96.0); MONO # 0.8 10^3/uL (0.0-0.8); MONO % 9.2 % (2.0-8.0); NEUTROPHILS # 6.9 10^3/uL (1.5-8.5); NEUTROPHILS % 76.8 % (36.0-66.0); PLATELET COUNT, AUTOMATED 375 10^3/uL (150-450)
[2022-03-25 07:48] LABS: CALCIUM LEVEL 9.5 MG/DL (8.8-10.2); CREATININE FOR GFR 4.68 MG/DL (0.70-1.30); GLOMERULAR FILTRATION RATE 13.1 (>42); MAGNESIUM LEVEL 2.1 MG/DL (1.8-2.4); POTASSIUM SERUM 5.1 MEQ/L (3.5-5.1)
[2022-03-25] MEDS: predniSONE 10 MG TAB PO SCH ×2 (08:42→08:59)
[2022-03-25] MEDS: ACETAMINOPHEN TAB 650MG DOSE (2X325MG) PO PRN ×2 (08:42→16:29)
[2022-03-25] MEDS: OMEPRAZOLE 20MG CAP PO SCH (08:42)
[2022-03-25] MEDS ORDERED: METOPROLOL SUCC *XL* 12.5MG PER 1/2 TAB (TopROL *XL*) PO SCH (09:00)
[2022-03-25] MEDS: methylPREDNISolone 125MG 2ML VIAL IV SCH (18:10)
[2022-03-25] MEDS: traZODone 100 MG TAB PO SCH (21:21)
[2022-03-25] MEDS: ATORVASTATIN 10 MG TAB PO SCH (21:21)
[2022-03-26] VITALS (17 sets, daily range): BP systolic 90–111; BP diastolic 56–65; O2SAT 88–98
[2022-03-26] MEDS: methylPREDNISolone 125MG 2ML VIAL IV SCH ×2 (05:36→18:29)
[2022-03-26] MEDS: HEPARIN SOD (PORCINE) 5000UNITS/ML 1ML VIAL/SYRINGE SC SCH ×3 (05:36→21:02)
[2022-03-26 07:30] LABS: HEMATOCRIT 27.4 % (42.0-52.0); HEMOGLOBIN 8.3 g/dl (13.5-17.5); MEAN CORPUSCULAR HEMOGLOBIN 25.9 pg (27.0-33.0); MEAN CORPUSCULAR HGB CONC 30.3 g/dl (32.0-36.5); MEAN CORPUSCULAR VOLUME 85.6 fl (80.0-96.0); PLATELET COUNT, AUTOMATED 377 10^3/uL (150-450)
[2022-03-26 08:02] LABS: CALCIUM LEVEL 9.9 MG/DL (8.8-10.2); CREATININE FOR GFR 3.6 MG/DL (0.70-1.30); GLOMERULAR FILTRATION RATE 17.7 (>42); POTASSIUM SERUM 5.2 MEQ/L (3.5-5.1)
[2022-03-26] MEDS: OMEPRAZOLE 20MG CAP PO SCH (09:01)
[2022-03-26] MEDS: ATORVASTATIN 10 MG TAB PO SCH (20:34)
[2022-03-26] MEDS: traZODone 100 MG TAB PO SCH (20:34)
[2022-03-26] MEDS ORDERED: LevoFLOXacin IV 500 MG in IV 1 EA IV SCH (21:00)
[2022-03-27] VITALS (13 sets, daily range): BP systolic 95–109; BP diastolic 52–62; O2SAT 93–97
[2022-03-27] MEDS: HEPARIN SOD (PORCINE) 5000UNITS/ML 1ML VIAL/SYRINGE SC SCH ×3 (06:00→20:28)
[2022-03-27 07:40] LABS: HEMATOCRIT 27.8 % (42.0-52.0); HEMOGLOBIN 8.3 g/dl (13.5-17.5); MEAN CORPUSCULAR HEMOGLOBIN 26.3 pg (27.0-33.0); MEAN CORPUSCULAR HGB CONC 29.9 g/dl (32.0-36.5); PLATELET COUNT, AUTOMATED 396 10^3/uL (150-450); RED BLOOD COUNT 3.16 10^6/uL (4.30-6.10); WHITE BLOOD COUNT 11.5 10^3/uL (4.0-10.0)
[2022-03-27] MEDS: OMEPRAZOLE 20MG CAP PO SCH (08:05)
[2022-03-27 08:20] LABS: CALCIUM LEVEL 10.5 MG/DL (8.8-10.2); CREATININE FOR GFR 3.02 MG/DL (0.70-1.30); GLOMERULAR FILTRATION RATE 21.7 (>42); POTASSIUM SERUM 5.1 MEQ/L (3.5-5.1)
[2022-03-27] MEDS ORDERED: methylPREDNISolone 125MG 2ML VIAL IV SCH (09:00)
[2022-03-27] MEDS: CETIRIZINE (ZyrTEC) 10 MG TAB PO SCH (12:28)
[2022-03-27] MEDS: traZODone 100 MG TAB PO SCH (20:28)
[2022-03-27] MEDS: ATORVASTATIN 10 MG TAB PO SCH (20:28)
[2022-03-27] MEDS: SENOKOT S TAB PO SCH (21:19)
[2022-03-28] VITALS: BP 108/59
[2022-03-28 04:00] VITALS: BP 112/61
[2022-03-28] MEDS: HEPARIN SOD (PORCINE) 5000UNITS/ML 1ML VIAL/SYRINGE SC SCH (05:44)
[2022-03-28] MEDS ORDERED: LevoFLOXacin 750 MG TABLET PO SCH (06:00)
[2022-03-28 07:00] VITALS: O2SAT 96
[2022-03-28 07:44] VITALS: BP 131/68
[2022-03-28 08:00] VITALS: O2SAT 96
[2022-03-28] MEDS: CETIRIZINE (ZyrTEC) 10 MG TAB PO SCH (08:03)
[2022-03-28] MEDS: OMEPRAZOLE 20MG CAP PO SCH (08:03)
[2022-03-28] MEDS: SENOKOT S TAB PO SCH (08:03)
[2022-03-28 08:31] LABS: HEMATOCRIT 30.8 % (42.0-52.0); MEAN CORPUSCULAR HEMOGLOBIN 26.1 pg (27.0-33.0); MEAN CORPUSCULAR HGB CONC 29.2 g/dl (32.0-36.5); MEAN CORPUSCULAR VOLUME 89.3 fl (80.0-96.0); PLATELET COUNT, AUTOMATED 462 10^3/uL (150-450); RED BLOOD COUNT 3.45 10^6/uL (4.30-6.10); WHITE BLOOD COUNT 13.1 10^3/uL (4.0-10.0)
[2022-03-28 09:00] VITALS: O2SAT 95
[2022-03-28] MEDS ORDERED: LIDOCAINE 5% (LIDODERM) PATCH TD SCH (09:00)
[2022-03-28] MEDS ORDERED: predniSONE 20 MG TAB PO SCH (09:00)
[2022-03-28 09:07] LABS: CALCIUM LEVEL 11.1 MG/DL (8.8-10.2); CREATININE FOR GFR 2.66 MG/DL (0.70-1.30); GLOMERULAR FILTRATION RATE 25.1 (>42)
[2022-03-28] MEDS ORDERED: VENTAER INH ×2 (11:36→17:13)
[2022-03-28] MEDS ORDERED: SENN-52 PO (11:36)
[2022-03-28] MEDS ORDERED: PRED10PA PO (11:36)
[2022-03-28] MEDS ORDERED: LIDO5TD TD (11:36)
[2022-03-28] MEDS ORDERED: CETI10TA PO (11:36)
[2022-03-28] MEDS ORDERED: MIRA3350 PO (11:36)
[2022-03-28] MEDS ORDERED: FURO20TA2 PO (17:16)
[2022-03-28] MEDS ORDERED: **NOTE PATIENT COMMENT** MISC XX SCH (21:00)
== END 2022-03-28 13:46 | disposition home or self-care (01) | DRG 683 ==
LOC: M ED 13:45 → M ED INP 20:24 → M PCU 22:54
PROVIDERS: ADMIT Family Medicine; ATTEND Family Medicine
DX: N17.9 Acute kidney failure, unspecified (principal); I50.22 Chronic systolic (congestive) heart failure; I13.0 Hypertensive heart and chronic kidney disease with heart failure and stage 1 through stage 4 chronic kidney disease, or unspecified chronic kidney disease; C34.32 Malignant neoplasm of lower lobe, left bronchus or lung; E87.2 Acidosis; I47.2 Ventricular tachycardia; J70.2 Acute drug-induced interstitial lung disorders; I25.10 Atherosclerotic heart disease of native coronary artery without angina pectoris; I25.2 Old myocardial infarction; Z95.5 Presence of coronary angioplasty implant and graft; Z95.810 Presence of automatic (implantable) cardiac defibrillator; E78.5 Hyperlipidemia, unspecified; N18.30 Chronic kidney disease, stage 3 unspecified; I05.9 Rheumatic mitral valve disease, unspecified; Z87.891 Personal history of nicotine dependence; Z92.3 Personal history of irradiation; Z92.21 Personal history of antineoplastic chemotherapy; Z90.49 Acquired absence of other specified parts of digestive tract; D64.9 Anemia, unspecified; I95.9 Hypotension, unspecified; Z20.822 Contact with and (suspected) exposure to COVID-19; Z79.52 Long term (current) use of systemic steroids; Z79.899 Other long term (current) drug therapy; Z88.0 Allergy status to penicillin; Z88.2 Allergy status to sulfonamides; Z91.018 Allergy to other foods; Z66 Do not resuscitate; J44.9 Chronic obstructive pulmonary disease, unspecified; K21.9 Gastro-esophageal reflux disease without esophagitis; T45.1X5A Adverse effect of antineoplastic and immunosuppressive drugs, initial encounter; E83.52 Hypercalcemia

== ENCOUNTER → 2022-04-09 | Outpatient (REF) | payer MEDICARE, OTHER ==
[~2022-04-09] MED LIST changes: +CETI10TA PO; +FURO20TA2 PO; +LIDO5TD TD; +MIRA3350 PO; +PRED10PA PO; +PRED10TA2 PO; +SENN-52 PO; +TORS100T PO; +VENTAER INH
[2022-04-09 18:42] LABS: HEMATOCRIT 35.2 % (42.0-52.0); HEMOGLOBIN 10.6 g/dl (13.5-17.5); MEAN CORPUSCULAR HEMOGLOBIN 26.4 pg (27.0-33.0); MEAN CORPUSCULAR HGB CONC 30.1 g/dl (32.0-36.5); MEAN CORPUSCULAR VOLUME 87.8 fl (80.0-96.0); PLATELET COUNT, AUTOMATED 373 10^3/uL (150-450); RED BLOOD COUNT 4.01 10^6/uL (4.30-6.10); WHITE BLOOD COUNT 18.1 10^3/uL (4.0-10.0)
[2022-04-09 19:28] LABS: ALBUMIN 3.4 GM/DL (3.2-5.2); BILIRUBIN,TOTAL 0.5 MG/DL (0.2-1.0); CALCIUM LEVEL 9.7 MG/DL (8.8-10.2); CREATININE FOR GFR 1.86 MG/DL (0.70-1.30); GLOMERULAR FILTRATION RATE 37.9 (>42); POTASSIUM SERUM 5.5 MEQ/L (3.5-5.1); TOTAL PROTEIN 7.1 GM/DL (6.4-8.2)
== END ==
LOC: M LABDRWCV 17:24
PROVIDERS: ATTEND Physician Assistant
DX: I50.22 Chronic systolic (congestive) heart failure (principal)

== ENCOUNTER → 2022-04-14 | Outpatient (REF) | payer MEDICARE, OTHER ==
[2022-04-14 18:18] LABS: CALCIUM LEVEL 10.2 MG/DL (8.8-10.2); CREATININE FOR GFR 2.44 MG/DL (0.70-1.30); GLOMERULAR FILTRATION RATE 27.7 (>42); POTASSIUM SERUM 4.8 MEQ/L (3.5-5.1)
== END ==
LOC: M LABDRWCV 16:59
PROVIDERS: ATTEND Physician Assistant
DX: I50.22 Chronic systolic (congestive) heart failure (principal)